=== PATIENT | female | born 1965 | race Caucasian/White ===

== ENCOUNTER 2021-11-08 10:06 | Emergency (ER) | payer BC ==
[2021-11-08 10:27] VITALS: BP 144/94; PULSE 98; TEMP 98.3; BMI 29.1
[2021-11-08] MEDS ORDERED: ALBUTEROL SO4 2.5/IPRATROPIUM 0.5 INH SOL 3 ML VIAL.NEB. NEB ONE (12:01)
[2021-11-08] MEDS ORDERED: predniSONE 20 MG TABLET (UD) PO ONE (12:02)
[2021-11-08] MEDS ORDERED: ACETAMINOPHEN 500 MG TABLET (FP) PO ONE (12:02)
[2021-11-08 14:03] LABS: INFLU A MOLECULAR Negative (Negative); INFLU B MOLECULAR Negative (Negative)
[2021-11-09 16:08] LABS: SARS-CoV-2 NAA Not Detected (Not Detected)
== END 2021-11-08 14:21 | disposition home or self-care (01) ==
LOC: JER 10:06
DX: J06.9 Acute upper respiratory infection, unspecified (principal)
CPT/HCPCS: 71046-TC-FY; 87502; 99283-25; C9803-CS; U0003; U0005